=== PATIENT | female | born 1965 | race Caucasian/White ===

== ENCOUNTER 2025-02-22 12:00 | Outpatient (REF) | payer MEDICARE, SELFPAY ==
--- OUTSIDE RECORDS SUMMARY | 2025-02-22 12:49 | XMS_ITS | Clinical Summary ---
Author Organization [facility] Address [address] [place] [address] Care Team Providers Care Vice President Of Business Development Name Role Phone Le Caraballo DMD Primary Care Provider [phone] Source Comments PLEASE NOTE, if this patient is a minor, it may be UNLAWFUL to discuss sensitive information that is contained in these records (such as FAMILY PLANNING, MENTAL HEALTH or SUBSTANCE ABUSE) with the minor patient's parent or other person without the patient's specific authorization.[facility] Allergies No known active allergies Medications ibuprofen 600 mg tabletIndications: Acute apical periodontitis Take 1 Tablet by mouth 3 (three) times daily 21 Tablet 4 Active Active Problems No known active problems Social History Tobacco Use Types Packs/Day Years Used Date Smoking Tobacco: Every Day Cigarettes Passive Smoke Exposure: Never Smokeless Tobacco: Never Tobacco Cessation:Ready to Q uit: Not Asked; Counseling Given: Not Answered Social Connections Answer Date Recorded Connectedness 0 04/20/2024 Financial Resource Strain Answer Date R ecorded Financial Resource Strain 0 2021 Stress Answer Date Recorded Stress 0 12/19/2021 Physical Activity Answer Date Recorded Physical Activity 0 12/19/2021 Food Insecurity Answer Date Recorded Food 0 04/15/2024 Transportation Needs Answer Date Record ed Transportation 0 12/19/2021 Housing Stability Answer Date Recorded Housing 0 12/19/2021 Safety and Environment Answer Date Darnell rded Safety 0 12/19/2021 Utilities Answer Date Recorded Utilities 0 12/19/2021 Employment Answer Date Recorded Stress 0 04/20/2024 Comments Unknown Sex and Gender Information Value Date Recorded Sex Assigned at Not on file Legal Sex Female 1:15 PM PDT Gender Identity Not on file Sexual Orientation Not on file Last Filed Vital Signs Vital Sign Reading Time Taken Comments Blood Pressure 140/98 01/13/2024 4:23 PM EDT Pulse 78 01/13/2024 4:23 PM EDT Temperature - - Respiratory Rate - - Oxygen Saturation - - Inhaled Oxygen Concentration - - Weight - - Height - - Body Mass Index - - Plan of Treatment Upcoming Encounters Date Type Department Care Team (Late st Contact Info) Description 03/28/2025 1:40 PM EDT Office Visit [facility] [address] [place] [address] Abi Caceres, DDS [address] [place] [address] Health Maintenance Due Date Last Done Comments Anxiety Screening 1965 HPV Screening 1965 Hepatitis C Screening 1965 Pap + HPV 1965 Tobacco Cessation Counseling (#1) 1965 Tobacco Screening 1965 Cervical Cancer Screening [address] Colonography 2008 Colonoscopy 2008 Colorectal Cancer Screening 2008 FIT/gFOBT 2008 Fecal DNA 2008 Flexible Sigmoidoscopy 2008 Imm-Zoster, Recombinant (1 of 2) 2013 Imm-Pneumococcal 50+ (2 of 2 - PCV) 08/25/201608/25 [id number] (1 - season) 2024 Alcohol and Drug Screen 07/21/2024 Depression Annual Screen 07/21/2024 Hypertension Screening (#1) 01/12/2025 Dental Perio Charting 01/14/2025 01/13/2024 Dental Prophy 01/14/2025 01/13/2024 Imm-Influenza (#1) 2025 08/25/2015, 06/13/2014 Breast Cancer Screening (Mammogram) 05/20/202505/20 Imm-DTaP/Tdap/Td (2 - Td or Tdap) 08/21/2025 016 Diabetes Screening 05/22/2026 05/22/2023, 0 10/23/2021, 10/23/2021 Lipid Screening 10/23/2026 10/23/2021 HIV Screening Completed 10/23/2021 Cervical Ablation/Cold-Knife Conization Discontinued Cervical Cryotherapy Discontinued Colposcopy Discontinued Endometrial Biopsy Discontinued Excision/Leep Discontinued HPV Genotyping Discontinued Vaginal Pap Discontinued Vulvoscopy Discontinued Procedures Procedure Name Priority Date/Time Associated Diagnosis Comments Full PROPHYLAXIS - ADULT Routine 01/13/2024 3:40 PM EDT Encounter for dental examination and cleaning without abnormal findings from Last 3 Months or Most Recently Relevant to Health Maintenance [place] [facility] [place] [address] Care Teams Vice President Of Business Development Relationship Specialty Start Date End Date Le Caraballo DMD [address] [place] [address] PCP - General 09/29/20
--- OUTSIDE RECORDS SUMMARY | 2025-02-22 12:50 | XMS_ITS | Clinical Summary ---
Author Organization [facility] Address [address] [place] [address] Phone Care Team Providers Care Fire Sprinkler Service Technician Name Role Phone Unavailable Primary Care Provider Unavailabl e Allergies No known active allergies Social History Tobacco Use Types Packs/Day Years Used Date Smoking Tobacco: Never Assessed Education Answer Date Recorded Are you interested in more education? Not on alyssa e 11/24/2022 Are you concerned about learning? Not on file 11/24/2022 No 11/24/2022 No 11/24/2022 Digital Access Answer Date Recorded No 12/15/2022 No 12/15/2022 No 12/15/2022 Reliable internet access at home? Not on file 12/15/2022 Device with a working camera? Not on file Comments Unknown Sex and Gender Information Value Date Recorded Sex Assigned at Not on file Legal Sex Female 6:21 PM EST Gender Identity Not on file Sexual Orientation Not on file Plan of Treatment Health Maintenance Due Date Last Done Comments Adult Td,Tdap Booster 1965 LIPID PANEL 1965 DEPRESSION SCREENING 1975 SMOKING Hx and SMOKELESS TOB ACCO SCREENING 1976 HEPATITIS C SCREENING 1981 HIV ONE-TIME SCREENING (18-6 5 YEARS) 1981 PAP SMEAR 1984 MAMMOGRAM 2003 COLOGUARD 2008 COLONOSCOPY 2008 COLORECTAL CANCER SCREENING 2008 FIT TEST 2008 FOBT 2008 SIGMOIDOSCOPY 2008 VIRTUAL COLONOSCOPY 2008 PNEUMOCOCCAL VACCINES (50+ y ears) (1 of 1 - PCV) 2013 ZOSTER VACCINES (1 of 2) 2013 COVID-19 VACCINE (2023-2 5 season) 2024 RSV VACCINE (1 - 1-dose 75+ series) 2038 HEPATITIS A VACCINES Aged Out No long er eligible based on patient's age to complete this topic HIB VACCINES Aged Out No longer eligi ble based on patient's age to complete this topic MENINGOCOCCAL VACCINES (ACWY) Aged Out No longer eligible based on patient's age to complete this topic MENINGOCOCCAL VACCINES (B) Aged Out N o longer eligible based on patient's age to complete this topic Medical Devices Not on file Additional Source Comments The information contained in this document represents components of the legal health record. It is not the complete legal health record.[facility]
--- OUTSIDE RECORDS SUMMARY | 2025-02-22 12:50 | XMS_ITS | Clinical Summary ---
Author Organization [facility] Address [address] [place] [address] Phone Care Team Providers Care Commercial Insulator Name Role Phone Juanita Monge MD Primary Care Provider Allergies No known active allergies Medications cloNIDine (CATAPRES) 0.3 mg tablet Take 1 tablet (0.3 mg total) by mouth at bedtime. Active doxycycline (VIBRAMYCIN) 100 mg capsule Take 1 capsule (100 mg total) by mouth 2 (two) times a day. 4 Active hydrOXYzine pamoate (VISTARIL) 50 mg capsule Take 1 capsule (50 mg total) by mouth every 8 hours as needed. 4 Active ibuprofen (ADVIL,MOTRIN) 800 mg tablet Take 1 tablet (800 mg total) by mouth every 8 hours as needed. 4 Active ivermectin 1 % cream Apply topically 1 (one) time each day. to affected area Active niacinamide 500 mg tablet Take 1 tablet (500 mg total) by mouth 2 (two) times a day with meals. Active oxyCODONE (ROXICODONE) 5 mg immediate release tablet Take 1 tablet (5 mg total) by mouth Every 4 hours as needed. Max Daily Amount: 30 mg 4 Active PARoxetine (PAXIL) 10 mg tablet Take 1 tablet (10 mg total) by mouth at bedtime. 3 Active pimozide (ORAP) 1 mg tablet Take 1 tablet (1 mg total) by mouth daily. 5 Active pregabalin (LYRICA) 150 mg capsule Take 1 capsule (150 mg total) by mouth 2 times daily. Max Daily Amount: 300 mg 4 Active traZODone (DESYREL) 50 mg tablet Take 1 tablet (50 mg total) by mouth at bedtime. Active triamcinolone (KENALOG) 0.1 % cream Apply topically 2 times daily as needed. 4 Active polyethylene glycol (Golytely) 236-22.74-6.74 -5.86 gram solution Take 4L by mouth once for one dose. May substitue any PEG. Starting at 2PM the day before your procedure drink 1 8oz glasses at your own pace until you complete half of the gallon. Finish 2nd half of the gallon at 8PM. 4000 mL 5 Active bisacodyL (DULCOLAX) 5 mg EC tablet Take 2 tablets by mouth right before beginning bowel prep. See instructions provided by the office 2 tablet 5 Active Encounters Date Type Department Care Team Description 11/30/2024 Telephone Gastroenterology - [address] [facility] [address] [place] [id number] Chacho Villagomez MD from Last 3 Months Surgical History Surgery Date Site/Laterality Comments TUBAL LIGATION Bilateral PROCEDURE: HISTORICAL TUBAL LIGATION BACK SURGERY 1999 PROCEDURE: HISTORICAL BACK SURGERY; COMMENT: abdominal entry BACK SURGERY 2013 PROCEDURE: HISTORICAL BACK SURGERY; COMMENT: back entry FOOT SURGERY 2013 PROCEDURE: HISTORICAL FOOT SURGERY BELT ABDOMINOPLASTY 2001 PROCEDURE: HISTORICAL TUMMY TU Medical History Medical History Date Comments Hypertension 01/11/2015 DX:Hypertension Borderline personality disor charlene ([facility] V24, [facility] V28) 01/11/2015 DX:Borderline personality d isorder ([facility]) Anxiety 10/15/2015 DX:Anxiety Bipolar 1 disorder ([facility] V24, [facility] V28) 10/15/2015 DX:Bipolar 1 disorder ([facility]) Hyperlipidemia 01/08/2018 DX:Hyperlipidemi a TAJ (obstructive sleep apnea) 10/15/2015 DX :TAJ (obstructive sleep apnea) Nicotine dependence 10/15/2015 DX:Nicotine dependence Back pain 10/15/2015 DX:Back pain; CO MMENT: Hip pain Left leg numbness Pelvic pain Obesity 10/15/2015 DX:Obesity Ovarian retention cyst 01/10/2015 DX:Ovaria n retention cyst Family History Medical History Relation Name Comments Other cancer Aunt , fabian bolton's sister Breast cancer Mother Relation Name Status Comments Aunt Mother Social History Tobacco Use Types Packs/Day Years Used Date Smoking Tobacco: Every Day Cigarettes Smokeless Tobacco: Never Alcohol Use Standard Drinks/Week Comments Yes 0 (1 standard drink = 0.6 oz pur e alcohol) Comments Unknown Sex and Gender Information Value Date Recorded Sex Assigned at Not on file Legal Sex Female 2:12 AM EST Gender Identity Not on file Sexual Orientation Not on file Obstetrics History Last Filed Vital Signs Vital Sign Reading Time Taken Comments Blood Pressure 152/115 10/24/2024 1:37 AM EDT Pulse 105 10/24/2024 1:37 AM EDT Temperature 36.1 C (97 F) 10/24/2024 1:37 AM EDT Respiratory Rate 18 10/24/2024 1:37 AM EDT Oxygen Saturation 99% 10/24/2024 1:37 AM EDT Inhaled Oxygen Concentration - - Weight 77.1 kg (170 lb) 10/24/2024 1:37 AM EDT Height 160 cm (5' 3 ) 10/24/2024 1:37 AM EDT Body Mass Index 30.11 10/24/2024 1:37 AM EDT Plan of Treatment Health Maintenance Due Date Last Done Comments Cervical Cancer Screening: P ap Smear 1984 Zoster Vaccines (1 of 2) 2013 Pneumococcal Vaccine: 50+ Years (2 of 2 - PCV) 08/25/2016 08/25/2015 Breast Cancer Screening 01/09/2020 01/08/2018 Cholesterol Screening (Lipid Panel) 06/29/2022 Colorectal Cancer Screening: Colonoscopy 06/29/2022 HIV Screening 06/29/2022 Hepatitis C Screening 06/29/2022 Medicare Annual Wellness Visit 06/29/2022 Social Influencers of Health Screening 06/29/2022 Hypertension/CHF/CAD Annual BMP Blood Test 07/03/2022 COVID-19 Vaccine (1 - 2023-2 5 season) 2024 Depression Screening 07/21/2024 Influenza Vaccine (#1) 2025 6, 06/13/2014 DTaP,Tdap,and Td Vaccines (2 - Td or Tdap) 08/21/2025 08/21/2015 RSV Immunization Adult Patients (1 - 1-dose 75+ series) 2038 HIB Vaccines Aged Out No longer eligi ble based on patient's age to complete this topic HPV Vaccines Aged Out No longer eligi ble based on patient's age to complete this topic Hepatitis A Vaccines Aged Out No long er eligible based on patient's age to complete this topic Hepatitis B Vaccines Aged Out No long er eligible based on patient's age to complete this topic IPV Vaccines Aged Out No longer eligi ble based on patient's age to complete this topic MMR Vaccines Aged Out No longer eligi ble based on patient's age to complete this topic Meningococcal ACWY Vaccine Aged Out N o longer eligible based on patient's age to complete this topic Meningococcal B Vaccine Aged Out No l onger eligible based on patient's age to complete this topic RSV Immunization Patients Under 20 months Aged Out No longer eligible b ased on patient's age to complete this topic Varicella Vaccines Aged Out No longer eligible based on patient's age to complete this topic Procedures Procedure Name Priority Date/Time Associated Diagnosis Comments [facility] SCREENING DIGITAL Routine 01/08/2018 5:12 PM EDT Encounter for screening mammogram for malignant neoplasm of breast from Last 3 Months or Most Recently Relevant to Health Maintenance Results * [facility] SCREENING DIGITAL (01/08/2018 5:12 PM EDT) Anatomical Region Laterality Modality Mammography 01/08/2018 11:2 7 AM EDT Narrative 01/08/2018 5:[address] [facility] Diagnostic Imaging Department [address] [place] [id number] Patient: MARY HOLMAN D.O.B./Age/Sex: 1965 - 52 - F Unit#: [id number] Location/Status: SPDIMAM/REG CLI Mnemonic/Ordering Site: [facility] Ordering Physician: JANENE NOLASCO MD [facility] Screening Digital - 01/08/18 - 1145 EXAM: [facility] Screening Digital EXAM DATE AND TIME: 01/08/2018 11:45 AM HISTORY: Screening. Mother had breast carcinoma age 63. COMPARISON: 07/03/16, 05/15/15, 05/13/14, 04/23/13 and earlier dating back to 2009. TECHNIQUE: CC and MLO views of both breasts were obtained using full field digital mammography. Bilateral digital breast tomosynthesis was performed in the MLO projection. Computer aided detection with the My Single Point 7.2-Valensum was employed. TISSUE DENSITY: c. The breasts are heterogeneously dense, which may obscure small masses. FINDINGS: There has been a gradual increase in breast density since 2009 which may be due to weight loss or hormone effect. The breast parenchymal pattern is nodular, unchanged from previous. No suspicious masses, grouped microcalcifications, or areas of architectural distortion are seen. The skin and vascularity are unremarkable. IMPRESSION: No mammographic evidence of malignancy is seen. No significant change. A negative mammogram in the presence of a clinically suspicious palpable abnormality does not preclude the possibility of malignancy or alter the indications for biopsy. BI-RADS: Category 2: Benign RECOMMENDATION(S): 1: Routine screening mammogram BILATERAL in 1 year. [id number], [id number] 3342F, [id number] Dictating Physician: REBECA TOUSSAINT MD Electronically Signed by: REBECA TOUSSAINT MD Dic Date/Time: 01/08/181710 Sign date/Time: 01/08/181711 Procedure Note Rebeca Toussaint MD - 07/09/2022 [facility] Diagnostic Imaging Department [address] [place], [place] [id number] Patient: MARY HOLMAN Vanessa /Age/Sex: 1965 - 52 - F Unit#: [id number] Location/Status: SPDIMAM/REG CLI Mnemonic/Ordering Site: [facility] Ordering Physician: JANENE NOLASCO MD [facility] Screening Digital - 01/08/18 - 1145 EXAM: [facility] Screening Digital EXAM DATE AND TIME: 01/08/2018 11:45 AM HISTORY: Screening. Mother had breast carcinoma age 63. COMPARISON: 07/03/16, 05/15/15, 05/13/14, 04/23/13 and earlier dating backto 2009. TECHNIQUE: CC and MLO views of both breasts were obtained using fullfield digital mammography. Bilateral digital breast tomosynthesis was performedin the MLO projection. Computer aided detection with the My Single Point 7.2-Hwas employed. TISSUE DENSITY: c. The breasts are heterogeneously dense, which mayobscure small masses. FINDINGS: There has been a gradual increase in breast density since 2009 which maybe due to weight loss or hormone effect. The breast parenchymal pattern is nodular, unchanged from previous. No suspicious masses, grouped microcalcifications, or areas ofarchitectural distortion are seen. The skin and vascularity are unremarkable. IMPRESSION: No mammographic evidence of malignancy is seen. No significant change. A negative mammogram in the presence of a clinically suspicious palpable abnormality does not preclude the possibility of malignancy or alter the indications for biopsy. BI-RADS: Category 2: Benign RECOMMENDATION(S): 1: Routine screening mammogram BILATERAL in 1 year. [id number], [id number] 3342F, [id number] Dictating Physician: REBECA TOUSSAINT MD Electronically Signed by: REBECA TOUSSAINT MD Dic Date/Time: 01/08/181710 Sign date/Time: 01/08/181711 Janene Nolasco MD IMG BI PROCEDURES Final Resu lt from Last 3 Months or Most Recently Relevant to Health Maintenance Insurance MEDICAID - [place] [employer] MEDICARE ADVANTAGE Care Teams Commercial Insulator Relationship Specialty Start Date End Date Juanita Monge MD [address] [place] [address] PCP - General Family Medicine 10/24/24
--- OUTSIDE RECORDS SUMMARY | 2025-02-22 12:50 | XMS_ITS | Clinical Summary ---
Author Organization [facility] Address [address] [place] [address] Care Team Providers Care Paint Mixer Hand Name Role Phone Unavailable Primary Care Provider Unavailabl e Social History Tobacco Use Types Packs/Day Years Used Date Smoking Tobacco: Never Assessed Sex and Gender Information Value Date Recorded Sex Assigned at Not on file Gender Identity Not on file Sexual Orientation Not on file Plan of Treatment Health Maintenance Due Date Last Done Comments Hepatitis C Screening 1965 COVID-19 Vaccine (#1) 03/11/1964 Depression Screening 1975 Preventative Health Evaluation 1981 DTap / Tdap / Td (1 - Tdap) 1982 Cervical Cancer Screening (P ap Smear) 1984 Colon Cancer Screening (Colonoscopy) 2008 Breast Cancer Screening (Mammogram) 2013 Shingrix-Zoster Vaccine (1 of 2) 2013 Influenza Vaccine (#1) 2025 RSV Adult > 60+ Yrs or Pregn ant (1 - 1-dose 75+ series) 2038 Hepatitis B Vaccines Aged Out No long er eligible based on patient's age to complete this topic Pneumococcal Vaccine Aged Out No long er eligible based on patient's age to complete this topic RSV Ped < 20 months Aged Out No longe r eligible based on patient's age to complete this topic
--- OUTSIDE RECORDS SUMMARY | 2025-02-22 12:50 | XMS_ITS ---
Author Name [facility] Organization Unknown Care Team Organization Name Specialty Phone Email Start Date End Da te [facility] MEGHAN JIMENEZ Primary Care 05/28/2022 03/08/20 24
--- OUTSIDE RECORDS SUMMARY | 2025-02-22 12:50 | XMS_ITS | Encounter Summary ---
Author Organization [facility] Address [address] [place] [address] [address] [place] [address] Care Team Providers Care Fish And Wildlife Biologist Name Role Phone Juanita Monge MD Primary Care Provider [phone] Reason for Visit * Reason Onset Date Comments Referral 11/04/2024 Encounter Details Date Type Department Care Team (Late st Contact Info) Description 11/04/2024 Telephone [facility] MEDICINE [address] [place] [address] Juanita Monge MD [address] [place], [place] [phone] Referral Social History Tobacco Use Types Packs/Day Years Used Date Smoking Tobacco: Every Day Cigarettes 0.3 46.6 Started: 07/21/1978 Passive Smoke Exposure: Never Smokeless Tobacco: Never Alcohol Use Standard Drinks/Week Comments Yes 0 (1 standard drink = 0.6 oz pur e alcohol) Depression Answer Date Recorded Patient Health Questionnaire-9 Score 0 12/26/2023 Patient Health Questionnaire-9 Score 0 12/26/2023 Last PHQ-9: Questionnaire Data Not on file 0 12/26/2023 Housing Stability Answer Date Recorded What is your housing situation today? I have jonathon higginbotham 12/23/[address] you li ve. Do you have problems with any of the following? Pests such as bugs, ants, or mice;Mold;Water leaks 12/23/2023 Food Insecurity Answer Date Recorded Within the past 12 months, y ou worried that your food would run out before you got money to buy more: Often true 12/23/2023 Within the past 12 months,th e food you bought just didn't last and you didn't have enough money to get more: Often true 10/2023 Transportation Answer Date Recorded In the past 12 months, has l ack of transportation kept you from medical appts, meetings, work or from getting things needed for daily living? Yes, it has kept me from medical appointments or getting medications. 12/23/2023 Utilities Answer Date Recorded In the past 12 months, has t he electric, gas, oil or water company threatened to shut off services in your home? Yes 12/23/2023 Depression Answer Date Recorded Patient Health Questionnaire-2 Score 0 12/26/2023 Comments Unknown Sex and Gender Information Value Date Recorded Sex Assigned at Female 12/25/2023 9:43 AM EDT Legal Sex Female 1:36 PM EDT Gender Identity Female 10/25/2023 6:47 AM EDT Sexual Orientation Straight 12/25/2023 3: 50 PM EDT documented as of this encounter Miscellaneous Notes * Telephone Encounter - Fernandez Capone - 11/04/2024 4:48 PM EDT Tc from pt requesting location of gastro referral to be changed to [address] [place] [id number] [place] [address] Medical Group - Gastroenterology. If any questions please contact pt at [phone]. documented in this encounter Plan of Treatment Not on file documented as of this encounter Visit Diagnoses Not on filedocumented in this encounter Additional Health Concerns Assessment Noted Time PHQ-9 Depression Total Score: 0 12/26/19 9:57 AM EDT documented as of this encounter Care Teams Fish And Wildlife Biologist Relationship Specialty Start Date End Date Juanita Monge MD [address] [place] [address] PCP - General Family Medicine 12/26/23 [facility] Psychiatrist 07/21/00 documented as of this encounter
[2025-02-22 14:19] LABS: MANUAL DIFF FLAG NO
[2025-02-22 14:27] LABS: Hematocrit 45.6 % (37.0-47.0); Hemoglobin 15.9 g/dl (12.0-16.0); Imm Gran Abs Auto 0.01 X10*3/uL (0.00-0.03); Imm Gran Pct Auto 0.2 % (0.0-0.4); Lymphocytes Absolute Auto 1.9 X10*3/uL (1.2-4.9); Mean Corpuscular HGB Conc 34.9 g/dl (31.0-35.0); Mean Corpuscular Hemoglobin 31.7 pg (27.0-33.0); Mean Corpuscular Volume 91.0 fL (80.0-98.0); NRBC Abs Auto 0.000 X10*3/uL (0.0-0.012); NRBC Pct Auto 0.0 /100WBC (0.0-0.2); Platelet Count 257 X10*3/uL (160-400); Red Blood Count 5.01 X10*6/uL (4.20-5.50); White Blood Count 6.2 X10*3/uL (4.8-10.8)
[2025-02-22 14:52] LABS: Alanine Aminotransferase 12 U/L (0-31); Albumin Level 3.9 g/dL (3.5-5.0); Alkaline Phosphatase 91 U/L (39-117); Amylase 19 U/L (28-100); Anion Gap 10 (12-20); Aspartate Amino Transferase 26 U/L (5-31); Blood Urea Nitrogen 11 mg/dL (9-16); Calcium 8.9 mg/dL (8.4-10.2); Carbon Dioxide 28 mmol/L (22-29); Chloride 106 mmol/L (96-108); Estimated Glomerular Filt Rate > 60; Potassium 3.8 mmol/L (3.3-5.1); Sodium 140 mmol/L (135-145); Total Protein 6.1 g/dL (6.5-8.0)
== END 2025-02-22 12:01 | disposition home or self-care (01) ==
LOC: HO.CHCLDS 12:00
PROVIDERS: Visit Provider Internal Medicine
DX: R21 Rash and other nonspecific skin eruption (principal)
CPT/HCPCS: 36415; 80053; 82150; 85025